=== PATIENT | male | born 1970 | race Caucasian/White ===

== ENCOUNTER 2020-06-13 10:08 | Emergency (ER) | payer OTHER, SELFPAY ==
--- NOTE | ~2020-06-13 | XR_ITS ---
XR chest 1V portable DATE: 06/13/2020 11:23 INDICATION: Cough, recent fever TECHNIQUE: Portable upright AP chest on 06/13/2020 1121 hours COMPARISON: None FINDINGS: Normal heart size. No hilar or mediastinal enlargement. No pulmonary infiltrate or consolid ation, pleural effusion or pulmonary vascular congestion or pneumothorax. IMPRESSION: No active cardiopulmonary disease Reviewed, dictated and finalized at location [facility].
[2020-06-13 10:21] VITALS: BP 156/97; PULSE 74; RESP 14; TEMP 36.8; O2SAT 97
[2020-06-13 11:01] LABS: Basophils Absolute Auto 0.1 K/mm3 (0.0-0.1); Basophils Percent Auto 0.8 % (0.2-1.2); Hematocrit 44.4 % (42.0-52.0); Hemoglobin 14.5 g/dL (14.0-18.0); Immature Granulocyte Absolute 0.01 K/mm3 (0.00-0.031); Immature Granulocyte Percent A 0.1 % (0-0.5); Lymphocytes Absolute Auto 2.58 K/mm3 (0.9-3.2); Lymphocytes Percent Auto 32.4 % (18.3-44.2); Mean Corpuscular HGB Conc 32.7 g/dl (32-36); Mean Corpuscular Hemoglobin 30.1 pg (26-34); Mean Corpuscular Volume 92.3 fl (80-100); Mean Platelet Volume 9.4 fl (7.4-10.4); Monocytes Absolute Auto 0.6 K/mm3 (0.1-0.6); Monocytes Percent Auto 7.2 % (2.6-8.5); Neutrophils Absolute Auto 4.7 K/mm3 (1.3-6.7); Neutrophils Percent Auto 59.5 % (45.5-73.1); Platelet Count Result 314 k/mm3 (150-375); Red Blood Count 4.81 M/mm3 (4.6-6.20); Red Cell Distribution Width 13.3 % (11.5-14.5)
--- NOTE | 2020-06-13 11:05 | ED.GENADULT ---
HPI - General Adult General Chief complaint: Upper Respiratory Infection <Felton Henderson PA-C - Last Filed: 06/13/20 12:34> Stated complaint: fever <Felton Henderson PA-C - Last Filed: 06/13/20 12:34> Time Seen by Provider: 06/13/20 10:13 <Felton Henderson PA-C - Last Filed: 06/13/20 12:34> Source: patient <Felton Henderson PA-C - Last Filed: 06/13/20 12:34> Mode of arrival: ambulatory <Felton Henderson PA-C - Last Filed: 06/13/20 12:34> Limitations: no limitations <Felton Henderson PA-C - Last Filed: 06/13/20 12:34> History of Present Illness HPI narrative: Patient is a 49-year-old male who presents to emergency department for evaluation of cough congestion runny nose sore throat that is been present for the last 3 days denies sick contacts 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 Patient denies any vomiting notes that he had a few loose stools denies dyspnea. Notes aching pain to the throat and with coughing cough is productive of clear phlegm. <Felton Henderson PA-C - Last Filed: 06/13/20 12:34> Related Data Allergies/adverse reactions: Allergies Allergy/AdvReac Type Severity Reaction Status Date / Time No Known Allergies Allergy Verified 06/13/20 10:26 <Felton Henderson PA-C - Last Filed: 06/13/20 12:34> Review of Systems Review of Systems: All systems reviewed & are unremarkable except as noted in HPI and below <Felton Henderson PA-C - Last Filed: 06/13/20 12:34> PMFSH Social History Social History: Social History Gender identity (if verbalized by the patient): Male <MELCHOR Leos Last Filed: 06/13/20 12:34> Exam Narrative: Exam Narrative: GENERAL: Well-appearing, well-nourished, and in no acute distress. HEAD: Normocephalic, atraumatic. EYES: PERRLA and EOMI. ENT: Nares clear, no rhinorrhea or epistaxis. Mucous membranes moist. CHEST: Clear to auscultation. No respiratory distress. No wheezes rales or rhonchi HEART: Regular rate and rhythm. No murmur heard. EXTREMITIES: Normal range of motion. No edema. SKIN: Warm, dry, no rash. NEURO: No focal deficits. Alert and oriented x3. Cranial nerves II through XII grossly intact PSYCH: Normal mood and affect. <Felton Henderson PA-C - Last Filed: 06/13/20 12:34> Course Course Emergency Course: Patient in the room aware of case findings treatment plan and diagnosis no high risk changes in the blood work or imaging tested for COVID will talk to his employer about waiting and a hotel room to self quarantine until his results are had patient provided with reasons to return afebrile nontoxic-appearing hemodynamically stable <Felton Henderson PA-C - Last Filed: 06/13/20 12:34> Vital Signs Vital signs: Vital Signs Temperature 98.3 F 06/13/20 10:21 Pulse Rate 74 06/13/20 10:21 Respiratory Rate 14 06/13/20 10:21 Blood Pressure 156/97 H 06/13/20 10:21 Pulse Oximetry 97 06/13/20 10:21 Temperature 98.3 F 06/13/20 10:21 Pulse Rate 77 06/13/20 13:06 Respiratory Rate 16 06/13/20 13:06 Blood Pressure 134/84 06/13/20 13:06 Pulse Oximetry 98 06/13/20 13:06 <MELCHOR Leos Last Filed: 06/13/20 12:34> Vital Signs Temperature 98.3 F 06/13/20 10:21 Pulse Rate 74 06/13/20 10:21 Respiratory Rate 14 06/13/20 10:21 Blood Pressure 156/97 H 06/13/20 10:21 Pulse Oximetry 97 06/13/20 10:21 Temperature 98.3 F 06/13/20 10:21 Pulse Rate 77 06/13/20 13:06 Respiratory Rate 16 06/13/20 13:06 Blood Pressure 134/84 06/13/20 13:06 Pulse Oximetry 98 06/13/20 13:06 <Iraida Duffy MD - Last Filed: 06/13/20 17:14> Medical Decision Making MDM Narrative Medical decision making narrative: Patient in the room with likely upper respiratory infection afebrile nontoxic-appearing no distress felt appropriate for outpati
[2020-06-13 11:16] LABS: Alanine Aminotransferase 25 U/L (4-50); Albumin Level 4.2 g/dL (3.5-5.1); Alkaline Phosphatase 85 U/L (38-126); Aspartate Amino Transferase 28 U/L (17-59); Bilirubin,Total 0.3 mg/dL (0.2-1.3); Blood Urea Nitrogen 14 mg/dL (9-20); Calcium 9.3 mg/dL (8.4-10.2); Carbon Dioxide 28 mmol/L (22-30); Chloride 105 mmol/L (98-107); Estimated CRCL calculation 108 ml/min; Estimated Glomerular Filt Rate > 60; Glucose 121 mg/dL (75-110); Potassium 4.3 mmol/L (3.4-5.0); Sodium 139 mmol/L (137-145)
[2020-06-13 13:06] VITALS: BP 134/84; PULSE 77; RESP 16; O2SAT 98
[2020-06-13 19:21] LABS: SARS-CoV-2 RNA PCR Negative
== END 2020-06-13 13:07 | disposition home or self-care (01) ==
PROVIDERS: Emergency Medicine Emergency Medical Services; Emergency Provider General Practice
DX: Z20.828 Contact with and (suspected) exposure to other viral communicable diseases (principal); J06.9 Acute upper respiratory infection, unspecified
CPT/HCPCS: 36415; 71045; 80053; 85025; 87635; 99283; C9803; U0003

== ENCOUNTER 2020-06-17 09:04 | Observation (INO) | payer SELFPAY ==
[2020-06-17] VITALS (13 sets, daily range): BP systolic 124–149; BP diastolic 75–89; PULSE 66–79; RESP 14–21; TEMP 36.4; O2SAT 95–100; BMI 32.2
--- NOTE | ~2020-06-17 | CT_ITS ---
EXAMINATION: CTA chest PE protocol DATE: 06/17/2020 10:46 INDICATION: Chest pain, shortness of breath TECHNIQUE: Computed tomography angiography (CTA) of the chest was performed with 100 mL Omnipaque-350 intravenous contrast timed to evaluate the pulmonary arteries. Coronal maximum intensity projection 3D-reconstructions were created by the technologist. Automated exposure control and iterative reconst ruction technique were employed. Exam dose: 632.89 mGy-cm total exam DLP. COMPARISON: 06/13/2020 portable AP chest FINDINGS: There is diagnostic contrast enhancement of the pulmonary arteries and no evidence of pulmo nary embolism. No thoracic aortic aneurysm or dissection. Normal heart size. No pericardial or pleural effusion. No hilar or mediastinal mass lesion or lymphadenopathy. Scattered pulmonary blebs are noted bilaterally. No pulmonary infiltrate or consolidation. There is m inimal bilateral dependent lower lobe atelectasis. Small sliding hiatal hernia. Normal morphology of the adrenal glands. Included upper abdominal structures are unremarkable. IMPRESSION: No evidence of pulmonary embolism Scattered bilateral pulmonary blebs Reviewed, dictated and finalized at [facility]. Reviewed, dictated and finalized at location [facility].
--- NOTE | 2020-06-17 09:35 | ECG_ITS ---
Measurements Intervals [place] Rate: 75 P: 62 RI: 151 QRS: 6 QRSD: 93 T: 54 QT: 358 QTc: 400 Interpretive Statements SINUS RHYTHM DELAYED PRECORDIAL R/S TRANSITION BORDERLINE ECG Electronically Signed On 06-17-2020 10:00:36 CDT by Singh Hodges D.O.
--- NOTE | 2020-06-17 09:39 | ED.SOB ---
HPI - SOB/Dyspnea General Chief Complaint: Shortness of Breath/Dyspnea Stated Complaint: repeat visit/sob/chest pain/back pain Time Seen by Provider: 06/17/20 09:33 Source: RN notes reviewed and old records reviewed History of Present Illness HPI Narrative: Patient presents emergency department from home for shortness of breath. Patient states symptoms began approximately 6 days ago. He states that shortness of breath is worse with exertion and associated with a cough this been nonproductive. Patient notes pain in between his shoulder blades pain over the anterior chest with deep inspiration. He denies any fevers or chills abdominal pain nausea vomiting or any other symptoms. States he does have a history of smoking. Patient states he was seen on 06/13/2020 in the emergency department [facility] negative work-up at that time including a negative COVID test. Related Data Allergies Allergy/AdvReac Type Severity Reaction Status Date / Time amoxicillin Allergy Unknown Verified 06/17/20 09:30 Penicillins Allergy Unknown Verified 06/17/20 09:30 Review of Systems Review of Systems: Narrative: Gen.: Denies fevers or chills ENT: Denies congestion Respiratory: See HPI CV: Reports chest pain with deep inspiration GI: Denies abdominal pain nausea, emesis or diarrhea denies burning, urgency, frequency or hematuria Musculoskeletal: Denies back pain or muscle pain Neuro: Denies numbness, tingling, weakness or focal weakness Skin: Denies rash Except as documented, all other systems reviewed and negative PMF Past Medical History Medical History (Updated 06/17/20 @ 14:58 by Mati Macedo DO) Patient denies significant medical history Social History Social History (Updated 06/17/20 @ 09:40 by Mati Macedo DO) Smoking packs per day: 0.5 Smoking cigarettes per day: 10.0 Gender identity (if verbalized by the patient): Male Exam Narrative: Exam Narrative: APPEARANCE: No acute distress, nontoxic, resting in bed EYES: EOMI HEENT: Normocephalic, atraumatic, OMM RESPIRATORY: No respiratory distress wheezing throughout the bilateral lung sarkar with no rhonchi or rales CARDIOVASCULAR: Regular rate and rhythm without murmurs rubs or gallops. ABDOMINAL: Soft, nontender, nondistended, no rebound or guarding MUSCULOSKELETAl: Moves all extremities. No clubbing, cyanosis or edema. NEURO: Awake and alert. Following commands, speech normal, no focal deficits SKIN:: Warm, dry. No rashes lesions or abrasions PSYCHIATRIC: Normal affect/mood, Course Course Emergency Course: Reviewed old records Patient given breathing treatments continues to have wheezing continues to feel short of breath patient got up to ambulate and felt very dyspneic. No formal diagnosis of COPD but suspect at this time. Will admit as patient is already been on albuterol inhaler at home for serial breathing treatments and steroids Discussed with CHRIS Johnston for Dr Muniz presentation and work-up. Agrees with admission at this time Discussed with patient and family results of workup and diagnosis. Discussed need for admission. Patient and family understand and agree to current treatment plan Vital Signs Vital signs: Vital Signs Temperature 97.6 F 06/17/20 09:20 Pulse Rate 75 06/17/20 09:20 Respiratory Rate 15 06/17/20 09:20 Blood Pressure 149/89 H 06/17/20 09:20 Pulse Oximetry 100 06/17/20 09:20 Temperature 97.6 F 06/17/20 09:20 Pulse Rate 74 06/17/20 13:42 Respiratory Rate 18 06/17/20 13:42 Blood Pressure 140/83 06/17/20 13:42 Pulse Oximetry 99 06/17/20 13:42 MDM - SOB/Dyspnea Lab Data Result diagrams: 06/17/20 09:52 06/17/20 09:52 Labs: Lab Results 06/17/20 06/17/20 06/17/20 Range/Units 09:52 09:52 09:52 WBC 9.1 (4.5-10.0) K/mm3 RBC 4.93 (4.6-6.20) M/mm3 Hgb 14.9 (14.0-18.0) g/dL Hct 44.4 (42.0-52.0) % MCV 90.1 (80-100) fl MCH 30.2
[2020-06-17] MEDS: methylPREDNISolone SOD SUCC 125 MG VIAL IV PUSH (09:48)
[2020-06-17 10:04] LABS: Basophils Absolute Auto 0.1 K/mm3 (0.0-0.1); Hematocrit 44.4 % (42.0-52.0); Hemoglobin 14.9 g/dL (14.0-18.0); Immature Granulocyte Absolute 0.02 K/mm3 (0.00-0.031); Immature Granulocyte Percent A 0.2 % (0-0.5); Lymphocytes Absolute Auto 2.92 K/mm3 (0.9-3.2); Lymphocytes Percent Auto 32.1 % (18.3-44.2); Mean Corpuscular HGB Conc 33.6 g/dl (32-36); Mean Corpuscular Hemoglobin 30.2 pg (26-34); Mean Corpuscular Volume 90.1 fl (80-100); Mean Platelet Volume 9.4 fl (7.4-10.4); Monocytes Absolute Auto 0.8 K/mm3 (0.1-0.6); Monocytes Percent Auto 8.5 % (2.6-8.5); Neutrophils Absolute Auto 5.3 K/mm3 (1.3-6.7); Neutrophils Percent Auto 58.2 % (45.5-73.1); Platelet Count Result 309 k/mm3 (150-375); Red Blood Count 4.93 M/mm3 (4.6-6.20); Red Cell Distribution Width 13.2 % (11.5-14.5); White Blood Count 9.1 K/mm3 (4.5-10.0)
[2020-06-17 10:14] LABS: Alanine Aminotransferase 31 U/L (4-50); Albumin Level 4.6 g/dL (3.5-5.1); Alkaline Phosphatase 90 U/L (38-126); Anion Gap 12.2 mmol/L (7-16); Aspartate Amino Transferase 32 U/L (17-59); Bilirubin,Total 0.4 mg/dL (0.2-1.3); Blood Urea Nitrogen 15 mg/dL (9-20); Calcium 9.8 mg/dL (8.4-10.2); Carbon Dioxide 24 mmol/L (22-30); Chloride 106 mmol/L (98-107); Estimated CRCL calculation 98 ml/min; Estimated Glomerular Filt Rate > 60; Glucose 93 mg/dL (75-110); Potassium 4.2 mmol/L (3.4-5.0); Sodium 138 mmol/L (137-145)
[2020-06-17 10:15] LABS: INR 0.9; Prothrombin Time 12.2 Seconds (11.1-14.7)
[2020-06-17] MEDS: ALBUTEROL SULFATE NEB 2.5 MG/0.5 ML INH 5 MG INHALATION ×3 (10:15→19:33)
[2020-06-17] MEDS: IPRATROPIUM BR 0.02% INH SOLN 0.5 MG/2.5 ML VIAL INHALATION ×3 (10:15→19:33)
[2020-06-17 10:26] LABS: Troponin I < 0.012 ng/mL (0.000-0.034)
[2020-06-17 13:41] LABS: Troponin I 0.014 ng/mL (0.000-0.034)
[2020-06-17] MEDS: KETOROLAC 30 MG/ML VIAL (*BKC) IV PUSH (13:47)
[2020-06-17 16:06] LABS: Troponin I < 0.012 ng/mL (0.000-0.034)
--- NOTE | 2020-06-17 16:34 | ADMGEN ---
This patient, Darryl Portillo, was admitted to 2 Medical Room 251-01. Patient/family oriented to hospital policies and general routines including ID bracelet, bed and alarms, visiting hours, pain management, procedures, bathroom and other care routines, personal items, smoking policy, room service/diet, and visiting hours. Valuables list has been completed. Information on how to activate the Rapid Response Team has been discussed. Patient/Family are encouraged to report perceived risks to care and to ask questions if they do not understand what they are told or what they should do.
[2020-06-17] MEDS: methylPREDNISolone SOD SUCC 125 MG VIAL 60 MG IV PUSH ×2 (16:56→22:11)
[2020-06-17] MEDS: ACETAMINOPHEN 325 MG TABLET 650 MG PO (18:30)
[2020-06-18] VITALS (8 sets, daily range): BP systolic 119; BP diastolic 53; PULSE 71–95; RESP 18–20; TEMP 36.6; O2SAT 99
[2020-06-18] MEDS: IPRATROPIUM BR 0.02% INH SOLN 0.5 MG/2.5 ML VIAL INHALATION ×2 (01:42→09:07)
[2020-06-18] MEDS: ALBUTEROL SULFATE NEB 2.5 MG/0.5 ML INH 5 MG INHALATION ×2 (01:42→09:07)
--- NOTE | 2020-06-18 02:31 | PM.IMHP ---
H&P: HPI History of Present Illness Chief complaint: Shortness of breath Narrative: Date and time of patient contact: 06/18/2020 at 2:30 a.m. 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 the patient developed shortness of breath and cough On the . He was having shortness of breath on exertion. His cough was nonproductive. He reported pain just below his shoulder blades and his lower anterior chest with deep breathing. He was sleeping more and had multiple episodes of profuse sweating while sleeping. He was evaluated in the ER at that time and had a chest x-ray that was unremarkable. He had Covid testing performed that was negative. He was discharged with an albuterol inhaler and ibuprofen. he continued to have persistent cough and worsening shortness of breath so came back to the ER. CTA was performed in the ER which was negative for pulmonary embolism. He had not noticed any exacerbating symptoms. However, after he received steroids and nebulizers in the ER he reports that his symptoms have improved by 110%. 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 He has had multiple stops in [facility], [facility] and the [place]. Review of Systems Review of Systems: Narrative: 12 systems were reviewed with pertinent positives and negatives per HPI. Except as documented in the HPI, all other systems were reviewed and are negative. 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 He has been on his current assignment for the last 3 weeks and is traveled 7000 miles. He has been to his current for 10 years. He has smoked up to 2.5 packs of cigarettes per day since he was a teenager. In November he started cutting back on his tobacco use and over the last month has been down to 8 cigarettes a day. He has not drank any alcohol in years. He denies ever using alcohol to excess. Smoking packs per day: 0.5 Smoking cigarettes per day: 10.0 Years smoked: 30 Smoking pack-years: 15.00 Smoking status: Current every day smoker Tobacco type: cigarettes Alcohol intake: former Substance use: never Substance use type: does not use Gender identity (if verbalized by the patient): Male Spiritual care concerns: No Meds Home Medications and Allergies Home Medications Medication Instructions Recorded Confirmed Type albuterol sulfate 2 puff INHALATION QID PRN #6.7 gm 06/13/20 06/17/20 Rx famotidine [Pepcid] 20 mg PO BID #7 tablet 06/13/20 06/17/20 Rx ibuprofen [IBU] 600 mg PO QID PRN #7 tablet 06/13/20 06/17/20 Rx loratadine [Claritin] 10 mg PO DAILY PRN #7 tablet 06/13/20 06/17/20 Rx Allergies Allergy/AdvReac Type Severity Reaction Status Date / Time amoxicillin Allergy Unknown Verified 06/17/20 16:32 Penicillins Allergy Unknown Verified 06/17/20 16:32 Vital Signs Vital Signs - 24 hr 06/17/20 09:20 06/17/20 10:15 06/17/20 10:22 Temperature 97.6 F Pulse Rate 79 73 68 Respiratory Rate 15 14 21 H Blood Pressure 149/89 H Pulse Oximetry 100 06/17/20 10:56 06/17/20 11:32 06/17/20 11:46 Temperature Pulse Rate 74 70 71 Respiratory Rate 18 18 20 Blood Pressure 1
[2020-06-18] MEDS: methylPREDNISolone SOD SUCC 125 MG VIAL 60 MG IV PUSH (04:02)
[2020-06-18 05:19] LABS: Basophils Percent Auto 0.2 % (0.2-1.2); Hematocrit 43.2 % (42.0-52.0); Hemoglobin 14.1 g/dL (14.0-18.0); Immature Granulocyte Absolute 0.12 K/mm3 (0.00-0.031); Immature Granulocyte Percent A 0.7 % (0-0.5); Lymphocytes Absolute Auto 1.28 K/mm3 (0.9-3.2); Lymphocytes Percent Auto 7.2 % (18.3-44.2); Mean Corpuscular HGB Conc 32.6 g/dl (32-36); Mean Corpuscular Hemoglobin 30.3 pg (26-34); Mean Corpuscular Volume 92.7 fl (80-100); Mean Platelet Volume 9.5 fl (7.4-10.4); Monocytes Absolute Auto 0.3 K/mm3 (0.1-0.6); Monocytes Percent Auto 1.6 % (2.6-8.5); Neutrophils Percent Auto 90.3 % (45.5-73.1); Platelet Count Result 303 k/mm3 (150-375); Red Blood Count 4.66 M/mm3 (4.6-6.20); Red Cell Distribution Width 13.2 % (11.5-14.5); White Blood Count 17.7 K/mm3 (4.5-10.0)
[2020-06-18 05:31] LABS: Anion Gap 13.6 mmol/L (7-16); Blood Urea Nitrogen 21 mg/dL (9-20); Calcium 9.5 mg/dL (8.4-10.2); Carbon Dioxide 20 mmol/L (22-30); Chloride 108 mmol/L (98-107); Estimated CRCL calculation 107 ml/min; Estimated Glomerular Filt Rate > 60; Glucose 181 mg/dL (75-110); Potassium 4.6 mmol/L (3.4-5.0); Sodium 137 mmol/L (137-145)
--- NOTE | 2020-06-18 09:28 | PM.DS ---
DS: Admitting Diagnosis Admitting Diagnosis Admitting Diagnosis: Chronic obstructive pulmonary disease with (acute) exacerbation DS: Discharge Diagnosis Discharge Diagnosis (1) Acute exacerbation of chronic obstructive airways disease: Code(s): J44.1 - Chronic obstructive pulmonary disease with (acute) exacerbation Status: Acute (2) Tobacco abuse disorder: Code(s): Z72.0 - Tobacco use Status: Acute Assessment and Plan: The risks of continued tobacco use were discussed and smoking cessation was encouraged with the patient at length. DS: Summary Hospital Course Reason for hospitalization: Shortness of breath Hospital Course: Mr. Portillo is a 49 y.o. male with PMH significant for GERD and tobacco abuse who presented to the emergency department 06/17/20 for the evaluation of dyspnea and chest discomfort/tightness with deep breathing. He presented to the ED several days earlier on 06/13/20 for the evaluation of cough COVID-19 testing was performed and negative. Initial workup in the ED revealed WBC 9,100, Hb 14.9, Hct 44.4, sodium 138, potassium 4.2, chloride 106, CO2 24, BUN 15, Cr 1.0, calcium 9.8, bilirubin 0.4, AST 32, ALT 31, ALP 90, troponin <0.012, EKG with sinus rhythm and delayed precordial R/S transition, and CTA chest with no evidence of pulmmonary embolism and scattered bilateral pulmonary blebs. He was treated with bronchodilators and IV bronchodilators and admitted to the hospitalist service for further management of COPD exacerbation. He had no known hx of COPD but had clear evidence of pulmonary blebs on CTA. He had significant improvement and was transitioned to PO prednisone. He felt much better and requested to discharge. Smoking cessation was discussed at lengthl. 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 He was discharged in stable condition on the morning of 06/18/20. Status at Discharge Functional status at discharge: independent ambulation Overall status at discharge: patient is back to baseline Time Spent with Patient Time attestation: Total time spent providing and/or coordinating discharge services: 35 minutes Exam Narrative: Exam Narrative: General: Very pleasant 49 y.o. male sitting at the side of the bed in no acute distress. HEENT: Normocephalic and atraumatic. Conjunctivae and lids normal. PERRL. EOMI. Mucous membranes moist. Neck: Supple. No lymphadenopathy or masses. Cardiac: Regular rate and rhythm. S1 and S2 normal. Lungs: Respirations non-labored. Tolerating room air without distress. Lungs clear to auscultation bilaterally with diminished breath sounds throughout. Abdomen: Soft, non-tender, and non-distended. Extremities: Well-perfused without lower extremity edema or cyanosis. Neurological: Alert. Exam non-focal to casual conversation and speech clear. Skin: Warm and dry. Psychiatric: Judgment and insight intact. Pleasant mood and appropriate affect. DS: Data Data Completed and Pending Labs on day of discharge: Labs from last 24 hours 06/18/20 06/18/20 06/17/20 05:04 05:04 15:37 WBC 17.7 H RBC 4.66 Hgb 14.1 Hct 43.2 MCV 92.7 MCH 30.3 MCHC 32.6 RDW 13.2 Plt Count 303 MPV 9.5 Immature Gran % (Auto) 0.7 H Neut % (Auto) 90.3 H Lymph % (Auto) 7.2 L [place] % (Auto) 1.6 L Eos % (Auto) 0.0 Baso % (Auto) 0.2 Lymph # (Auto) 1.28 [place] # (Auto) 0.3 Eos # (Auto) 0.0 Baso # (Auto) 0.0 Abs Immat Gran (auto) 0.12 H Absolute Neuts (auto) 16.0 H Absolute Nucleated RBC 0.0 Nucleated RBC % 0.0 PT INR APTT Sodium 137 Potassium 4.6 Chloride 108 H Carbon Dioxide 20 L Anion Gap 13.6 BUN 21 H Creatinine 0.90 Estim Creat Clear Calc 107 Estimated GFR > 60 Glucose 181 H Calcium 9.5 Total Bilirubin AST ALT Alkaline Phosphatase Troponin I
[2020-06-18] MEDS: predniSONE 20 MG TABLET 60 MG PO (09:29)
[2020-06-18] MEDS: ENOXAPARIN 40 MG/0.4 ML SYRINGE SUB-Q (09:30)
[2020-06-18] MEDS: FAMOTIDINE 20 MG TABLET PO (09:30)
== END 2020-06-18 10:51 | disposition home or self-care (01) ==
LOC: ANHED 14:58 → ANH2MED 15:01
PROVIDERS: Admitting Provider Family Medicine; Emergency Provider Emergency Medicine; Visit Provider Internal Medicine
DX: J44.1 Chronic obstructive pulmonary disease with (acute) exacerbation (principal); F17.210 Nicotine dependence, cigarettes, uncomplicated; K21.9 Gastro-esophageal reflux disease without esophagitis
CPT/HCPCS: 36415; 71275; 80048; 80053; 84484; 85025; 85610; 85730; 93005; 94640; 96372; 96374; 96375; 96376; 99285; A9270; G0378; J1650; J1885; J2930; J7512; Q9967